=== PATIENT | female | born 1990 | race Caucasian/White ===

== ENCOUNTER 2016-04-20 18:41 | Inpatient (IN) | payer OTHER ==
[~2016-04-20] VITALS: Ht 162.6 cm; Wt 89.7 kg
[2016-04-20 19:58] VITALS: Ht 162.6 cm; Wt 89.7 kg
[2016-04-20 19:59] VITALS: BP 114/78; PULSE 100; RESP 18
[2016-04-20] MEDS ORDERED: METHYLERGONOVINE 0.2 MG INJ IM PRN (20:00)
[2016-04-20] MEDS ORDERED: OXYTOCIN 30 UNITS/LR 500 ML IV PRN (20:00)
[2016-04-20] MEDS ORDERED: LACTATED RINGER'S 1,000 ML IV PRN (20:00)
[2016-04-20] MEDS ORDERED: LIDOCAINE 1% (MPF) 30 ML INJ INJ PRN (20:00)
[2016-04-20] MEDS ORDERED: OXYTOCIN 30 UNITS/LR 500 ML IV SCH ×2 (20:00)
[2016-04-20] MEDS ORDERED: AMPICILLIN 2 GM/NS (PMX) 100 ML IV ONE (20:00)
[2016-04-20] MEDS ORDERED: CARBOPROST 250 MCG INJ IM PRN (20:00)
[2016-04-20] MEDS: LACTATED RINGER'S 1,000 ML IV SCH ×2 (20:00→21:56)
[2016-04-20] MEDS ORDERED: MISOPROSTOL 200 MCG TAB PR PRN (20:00)
[2016-04-20] MEDS ORDERED: BUTORPHANOL 2 MG INJ IV PRN (20:00)
[2016-04-20] MEDS ORDERED: FERR325C PO (20:03)
[2016-04-20] MEDS ORDERED: PRENAT PO (20:03)
[2016-04-20] MEDS ORDERED: CALC-516 PO (20:04)
[2016-04-20] MEDS ORDERED: FOL8 PO (20:04)
[2016-04-20 20:43] LABS: BASOPHILS % 0.3 % (0.0-2.0); EOSINOPHILS % 0.3 % (0.0-7.0); HEMATOCRIT 38.3 % (37.0-47.0); HEMOGLOBIN 12.9 g/dl (12.0-16.0); LYMPHOCYTES # 1.8 10^3/ul (0.8-2.9); LYMPHOCYTES % 14.4 % (15.0-51.0); MEAN CORPUSCULAR HEMOGLOBIN 30.1 pg (29.0-33.0); MEAN CORPUSCULAR HGB CONC 33.8 g/dl (32.0-37.0); MEAN CORPUSCULAR VOLUME 89.2 fl (82.0-101.0); MEAN PLATELET VOLUME 9.9 fl (7.4-10.4); MONOCYTE # 0.5 10^3/ul (0.3-0.9); MONOCYTES % 4.3 % (0.0-11.0); NEUTROPHIL # 9.8 10^3/ul (1.6-7.5); NEUTROPHILS % 80.7 % (39.0-77.0); PLATELET COUNT 192 10^3/UL (140-440); RED BLOOD COUNT 4.29 10^6/ul (4.20-5.40); RED CELL DISTRIBUTION WIDTH 12.8 % (11.5-14.5); UNCORRECTED WBC 12.2 10^3/ul (4.8-10.8); WHITE BLOOD COUNT 12.2 10^3/ul (4.8-10.8)
[2016-04-20 20:47] LABS: CONDITION 1
[2016-04-20 20:53] LABS: INR 0.89; PT RATIO 0.9
[2016-04-20 20:54] LABS: PARTIAL THROMBOPLASTIN TIME 26.9 Sec (25.0-35.0)
[2016-04-20 21:04] LABS: BARBITURATES Negative (NEGATIVE); BENZODIAZEPINES Negative (NEGATIVE)
[2016-04-20 21:05] LABS: CANNABINOIDS Negative (NEGATIVE)
[2016-04-20 21:07] LABS: COCAINE Negative (NEGATIVE)
--- NOTE | 2016-04-20 21:21 | RADRPT ---
PROCEDURE: US OB. CLINICAL INDICATION: . Liver. TECHNIQUE: Multiple transabdominal sonographic images of the pelvis were obtained. COMPARISON: None. FINDINGS: There is a single live intrauterine in cephalic presentation with heart motion of 13 7 beats per minute. The placenta is posteriorly located. Amniotic fluid amount appears decreased. Measurements were made in order to determine age. The results are as follows: BPD = 9.59 cm, 39 weeks 1 day HC = 33.34 cm, 38 weeks 1 day AC = 34.80 cm, 38 weeks 5 days FL = 7.42 cm, 38 weeks 0 days SANDEE: 04/30/2016 by ultrasound. SANDEE: 04/26/2016 by LMP. EFW: 3521 g, 7 pounds 12 ounces, 55.3%. IMPRESSION: Single live intrauterine measuring 38 weeks 4 days using current ultrasound measurements w ith an estimated date of delivery of 04/30/2016. RPTAT: HLST .Carmel Medellin MD, MD Date Time Electronically viewed and signed by .Carmel Medellin MD, on 04/20/2016 21:20 .T/
[2016-04-20 21:25] LABS: OPIATES NEGATIVE (NEGATIVE)
--- NOTE | 2016-04-20 23:42 | HP ---
Date/Time of Note Date/Time of Note DATE: 04/20/16 TIME: 23:39 OB - History Hx of Present Chief Complaint: leakage of fluid Estimated Due Date: Apr 26, 2016 : 1 Para: 0 Spontaneous : 0 Therapeutic : 0 Care: Other ( records not available) Obstetrical Complications: None Medical Complications: None Past Family/Social History * Past Medical, Surgical, Family and Obstetric Histories reviewed from chart. GBS Status: Unknown OB Admission Exam Vital Signs Vital Signs Vital Signs Date Time Temp Pulse Resp B/P Pulse Ox O2 Delivery O2 Flow Rate FiO2 04/20/16 19:59 98.3 100 18 114/78 Room Air Physical Exam HEENT: WNL Heart: Rhythm Normal Lungs: Clear Abdomen: WNL Extremities: Normal Cervical Dilatation: 1cm Effacement: 50% Station: -1 Membranes: Ruptured Amniotic Fluid: Thin Meconium Heart Rate: 130's Accelerations: Accelerations Present Decelerations: No Decelerations Varibility: Moderate Last 72 hours Lab Results CBC & BMP 04/20/16 20:25 OB Assessment/Plan Reason for admission: rupture of membranes Plan: Expectant Management JOSE ALEXIS MD Apr 20, 2016 23:42
[2016-04-21] MEDS ORDERED: OXYTOCIN 30 UNITS/LR 500 ML IV SCH (04:00)
[2016-04-21] MEDS: LACTATED RINGER'S 1,000 ML IV SCH ×2 (04:16→10:56)
[2016-04-21] MEDS ORDERED: AMPICILLIN 2 GM/NS (PMX) 100 ML ONE (06:30)
[2016-04-21] MEDS ORDERED: AMPICILLIN 2 GM/NS (PMX) 100 ML IV ONE (06:30)
[2016-04-21] MEDS ORDERED: FENTAnyl 2MCG/ML-ROPIV 0.2% 100 ML ONE (10:00)
[2016-04-21] MEDS ORDERED: AMPICILLIN 1 GM/NS (PMX) 50 ML IV SCH ×2 (10:30)
[2016-04-21] MEDS ORDERED: FENTAnyl 2MCG/ML-ROPIV 0.2% 100 ML BAG EPI SCH (11:30)
[2016-04-21] MEDS ORDERED: NALOXONE (0.4 MG/ML) INJ IV PRN ×2 (11:30→14:00)
[2016-04-21] MEDS ORDERED: CEFAZOLIN 2 GM/50 ML (PMX) 50 ML IV SCH (13:00)
[2016-04-21] MEDS ORDERED: CEFAZOLIN 2 GM/50 ML (PMX) 50 ML IVPB ONE (13:03)
[2016-04-21] MEDS ORDERED: KETOROLAC 30 MG INJ ONE (13:35)
[2016-04-21] MEDS ORDERED: METOCLOPRAMIDE 10 MG INJ ONE (13:35)
[2016-04-21] MEDS ORDERED: OXYTOCIN 10 UNIT INJ ONE ×2 (13:35→13:36)
[2016-04-21] MEDS ORDERED: DEXAMETHASONE 4 MG/ML 1 ML INJ ONE (13:35)
[2016-04-21] MEDS ORDERED: ONDANSETRON 4 MG INJ ONE (13:35)
[2016-04-21] MEDS ORDERED: morphine SULFATE/PF (10 MG/10 ML) INJ ONE (13:49)
[2016-04-21] MEDS ORDERED: PHENYLephrine (100 MCG/ML) 5ML SYG ONE (13:51)
[2016-04-21] MEDS ORDERED: DIPHENHYDRAMINE 50 MG INJ IV PRN ×2 (14:00)
[2016-04-21] MEDS ORDERED: morphine 4 MG/ML VIAL IV PRN (14:00)
[2016-04-21] MEDS ORDERED: HYDROmorphONE 1 MG/ML SYG IV PRN ×2 (14:00)
[2016-04-21] MEDS ORDERED: morphine 2 MG INJ IV PRN (14:00)
[2016-04-21] MEDS ORDERED: EPHEDrine SULFATE 50 MG/5 ML SYG IV PRN (14:00)
[2016-04-21] MEDS ORDERED: ZOLPIDEM 5 MG TAB PO PRN (14:00)
[2016-04-21] MEDS ORDERED: FENTAnyl 50 MCG/ML VIAL IV PRN ×3 (14:00)
[2016-04-21] MEDS ORDERED: ONDANSETRON 4 MG INJ IV PRN ×2 (14:00)
[2016-04-21] MEDS ORDERED: METOCLOPRAMIDE 10 MG INJ IV PRN (14:00)
[2016-04-21] MEDS ORDERED: HYDROmorphONE (0.2 MG/ML) 10ML SYG IV PRN ×3 (14:00)
[2016-04-21] MEDS ORDERED: HYDROCODONE/APAP (5/325) TAB PO PRN (14:00)
[2016-04-21] MEDS ORDERED: NALBUPHINE HCL (10 MG/1 ML) INJ IV PRN (14:00)
[2016-04-21] MEDS ORDERED: morphine (1 MG/ML) 10ML SYRINGE IV PRN ×3 (14:00)
[2016-04-21] MEDS ORDERED: MEPERIDINE 25 MG INJ IV PRN (14:00)
[2016-04-21] MEDS ORDERED: KETOROLAC 30 MG INJ IV PRN (14:00)
[2016-04-21] MEDS ORDERED: OXYTOCIN 30 UNITS/LR 500 ML IV PRN (17:30)
[2016-04-21] MEDS ORDERED: LANOLIN 7 GM TUBE TOP PRN (17:30)
[2016-04-21] MEDS ORDERED: METHYLERGONOVINE 0.2 MG INJ IM PRN (17:30)
[2016-04-21] MEDS ORDERED: MISOPROSTOL 200 MCG TAB PR PRN (17:30)
[2016-04-21] MEDS ORDERED: OXYCODONE/ACETAMINOPHEN (5/325) TAB PO PRN ×2 (17:30)
[2016-04-21] MEDS ORDERED: ACETAMINOPHEN/CODEINE #3 TAB PO PRN ×2 (17:30)
[2016-04-21] MEDS ORDERED: CEFAZOLIN 1 GM/50 ML (PMX) 50 ML IVPB SCH (17:30)
[2016-04-21] MEDS ORDERED: CARBOPROST 250 MCG INJ IM PRN (17:30)
--- NOTE | 2016-04-21 17:31 | DELSUM ---
Delivery Summary A-C Datetime Report Generated by CPN: 04/21/2016 17:30 DELIVERY PERSONNEL Training Development Manager: Servin, [place] MATERNAL INFORMATION Delivery Anesthesia: Epidural Medications in Delivery: see anesthesia records Estimated Blood Loss (ml): 500 Placenta Cultured: Yes Maternal Complications: Other Other Maternal Complications: SROM light meconium 2/7 @ 1800 LABOR SUMMARY EDC: 04/26/2016 00:00 No. Babies in Womb: 1 Attempted: No Labor Anesthesia: Epidural LABOR INFORMATION Reason for Induction: Not Applicable Onset of Labor: 04/20/2016 18:00 Oxytocin: Augmentation Group B Beta Strep: Negative Antibiotics # of Doses: 3 Antibiotics Time of Last Dose: 1315 Steroids Given: None Reason Steroids Not Administered: Not Applicable MEMBRANES Membranes Rupture Method: Spontaneous Membranes Rupture Method: Spontaneous Rupture of Membranes: 04/20/2016 18:00 Length of Rupture (hr): 19.62 Amniotic Fluid Color: Light Meconium Amniotic Fluid Color: Light Meconium Amniotic Fluid Amount: Small Amniotic Fluid Amount: Moderate Amniotic Fluid Odor: None Amniotic Fluid Odor: None STAGES OF LABOR Stage 3 hr: 0 Stage 3 min: 1 Total Time in Labor hr: 19 Total Time in Labor min: 38 CSECTION DELIVERY Primary Indication: Nonreassuring Stat CSection Urgency: Emergency CSection Incidence: Primary Labor: Labor Elective: Nonelective CSection Incision: Lower Uterine Transverse BABY A INFORMATION Delivery Date/Time: 04/21/2016 13:37 Method of Delivery: Born in Route : No : N/A Forceps: N/A Vacuum Extraction: N/A Shoulder Dystocia : N/A SHOULDER DYSTOCIA BABY A Delivery Date/Time: 04/21/2016 13:37 PRESENTATION/POSITION BABY A Presentation: Cephalic Cephalic Presentation: Vertex Vertex Position: Left Occipital Transverse Breech Presentation: N/A PLACENTA INFORMATION BABY A Placenta Delivery Time : 04/21/2016 13:38 Placenta Method of Delivery: Manual Removal Placenta Status: Delivered SCORES BABY A Heart Rate 1 min: >100 bpm Resp Effort 1 min: Slow, Irregular Reflex Irritability 1 min: Cough/Sneeze/Pulls Away Muscle Tone 1 min: Active Motion Color 1 min: Blue/Pale Resuscitation Effort 1 min: Tactile Stimulation; Oxygen SCORE 1 MIN: 7 Heart Rate 5 min: >100 bpm Resp Effort 5 min: Slow, Irregular Reflex Irritability 5 min: Cough/Sneeze/Pulls Away Muscle Tone 5 min: Active Motion Color 5 min: Body [place], Extremit Blue SCORE 5 MIN: 8 Heart Rate 10 min: >100 bpm Resp Effort 10 min: Good Cry Reflex Irritability 10 min: Cough/Sneeze/Pulls Away Muscle Tone 10 min: Active Motion Color 10 min: Body [place], Extremit Blue SCORE 10 MIN: 9 INFANT INFORMATION BABY A Gestational Age at Delivery: 39.2 Gestational Status: Full Term- 39- 40.6 Weeks Infant Outcome : Liveborn Infant Condition : Stable Sex: Male IDENTIFICATION/MEDS BABY A ID Band Number: [id number] ID Band Location: Right Leg; Left Arm Sensor Applied: Yes Sensor Number: [id number] Sensor Location : Cord Clamp Vitamin K Given : Not Given Erythromycin Given: Not Given WEIGHT/LENGTH BABY A Birthweight (gm): 3255 Infant Weight (lb): 7 Weight (oz): 3 Infant Length (in): 20.00 Infant Length (cm): 50.80 CORD INFORMATION BABY A No. Cord Vessels: 3 Nuchal Cord : N/A Cord Blood Taken: Yes Infant Suction: Mouth; Nose ASSESSMENT BABY A Infant Complications: Multiple Variable Decels; Meconium Complications- Other: SROM light meconium 2/7 @ 1800 Physical Findings- Other: void x1 Respirations: Appears Normal Desktop Architect/ALS Called : No Infant Care By: rt/leann rn Transferred To: Remains with Mother
[2016-04-21 17:40] VITALS: BP 121/70; PULSE 65; RESP 18
[2016-04-21 18:00] VITALS: BP 120/74; PULSE 65; RESP 18
[2016-04-21] MEDS: IBUPROFEN 600 MG TAB PO SCH (18:00)
[2016-04-21] MEDS: OXYTOCIN 30 UNITS/LR 500 ML IV SCH (18:03)
[2016-04-21 19:30] VITALS: BP 120/68; PULSE 84; RESP 19
[2016-04-21] MEDS: SENNA/DOCUSATE NA (8.6MG/50MG) TAB PO SCH (21:08)
[2016-04-22] VITALS: BP 117/69; PULSE 75; RESP 20
[2016-04-22] MEDS: OXYTOCIN 30 UNITS/LR 500 ML IV SCH ×3 (01:06→05:06)
[2016-04-22] MEDS: LACTATED RINGER'S 1,000 ML IV SCH ×2 (01:06→06:40)
[2016-04-22 05:08] VITALS: BP 110/61; PULSE 79; RESP 18
[2016-04-22] MEDS: IBUPROFEN 600 MG TAB PO SCH ×5 (06:00→23:31)
[2016-04-22 08:00] VITALS: BP 107/52; PULSE 89; RESP 18
[2016-04-22 08:01] LABS: BASOPHILS % 0.2 % (0.0-2.0); EOSINOPHILS % 0.2 % (0.0-7.0); HEMATOCRIT 30.8 % (37.0-47.0); HEMOGLOBIN 10.6 g/dl (12.0-16.0); LYMPHOCYTES % 11.8 % (15.0-51.0); MEAN CORPUSCULAR HEMOGLOBIN 30.8 pg (29.0-33.0); MEAN CORPUSCULAR HGB CONC 34.3 g/dl (32.0-37.0); MEAN PLATELET VOLUME 9.3 fl (7.4-10.4); MONOCYTE # 0.8 10^3/ul (0.3-0.9); MONOCYTES % 4.8 % (0.0-11.0); NEUTROPHIL # 13.7 10^3/ul (1.6-7.5); PLATELET COUNT 175 10^3/UL (140-440); RED BLOOD COUNT 3.42 10^6/ul (4.20-5.40); RED CELL DISTRIBUTION WIDTH 13.2 % (11.5-14.5); UNCORRECTED WBC 16.5 10^3/ul (4.8-10.8); WHITE BLOOD COUNT 16.5 10^3/ul (4.8-10.8)
[2016-04-22 08:09] LABS: CONDITION 1
--- NOTE | 2016-04-22 08:49 | HP ---
DATE OF ADMISSION: 04/20/2016 HISTORY OF PRESENT ILLNESS: This is a 25-year-old female, 1, para 0, with an EDC o f 04/26/2016, admitted to [facility] with the chief complaint of premature rupture of membranes and very early labor. Upon admission to the hospital, pelvic examination was carried out. Cervical dilatation at 1 cm, 30 to 40% effacement, vertex is -2 station. The patient was plac ed on low dose augmentation and antibiotics. During the course of labor she developed several occas ions, 3 to 4 episodes, of variable decelerations, down to the 60s. Due to the category 2 and 3 khadar iable decelerations and not anticipating a timely delivery, this was discussed with the patient. Au gmentation was discontinued and the patient decided not to try the augmentation at a later time afte r some resting period and requested a delivery. Therefore, she is being prepared to under go the above-mentioned surgery. This patient has been under the care of the [employer] kim lama her course was not complicated with gestational diabetes, -induced hypertension , or any other serious surgical or medical conditions. GYNECOLOGIC HISTORY: Menarche at age 12, regular periods, 28 days, lasting 5 to 6 days. No history of any previous pregnancies. SURGICAL HISTORY: Negative. PAST MEDICAL HISTORY: No hospitalizations for any serious medical conditions. ALLERGIES: DENIES ALLERGIES TO ANY KNOWN MEDICATION. SOCIAL HISTORY: Denies smoking or drinking. REVIEW OF SYSTEMS: Within normal. PHYSICAL EXAMINATION: VITAL SIGNS: Height 5 feet 4, 174 pounds, with a temperature of 97.5, pulse of 63, respirations 18, and blood pressure 102/55. HEAD, EARS, NOSE AND THROAT: Negative. NECK: Supple. No thyromegaly. LUNGS: Clear to P and A. HEART: Normal sinus rhythm. No murmur. BREASTS: Status compatible with state of the . No abnormal palpable mass. No nipple retr action or discharge. No axillary adenopathy, no supraclavicular adenopathy. ABDOMEN: Measures approximately 37 cm from the symphysis pubis to the height of the fundus, with th e heart rate at times category 3. FINAL PELVIC EXAMINATION: Cervical dilatation at 2 cm, 90% effacement, vertex at -3 station. IMPRESSION: Intrauterine at term, premature rupture of membrane, nonreassuring heart tracings, category 3. A trial of labor was discussed with the patient, with discontinuation of aug mentation and retrying several hours labor, requesting delivery. The patient is aware of the complications of the surgery, including bowel or bladder injury, infection, hemorrhage, and yuly yina, and she is willing to go ahead with this procedure. PREOPERATIVE DIAGNOSIS: Intrauterine at term, premature rupture of membranes, non-reassuri ng heart tracing (category 2 and 3). Declined further trial of labor, requesting de jamesy. POSTOPERATIVE DIAGNOSIS: Intrauterine at term, premature rupture of membranes, non-reassur ing heart tracing (category 2 and 3). Declined further trial of labor, requesting d [place]. PROCEDURE: Primary transverse low cervical section. SURGEON: Ryder Pabon MD STEEL LOADER: Gina Mccann MD ANESTHESIA: Spinal. ANESTHESIOLOGIST: Bryant Zarate MD FINDINGS: Live baby boy, with Apgars of 7, 8 and 9, weight 3255 grams. DETAILS OF PROCEDURE: Under satisfactory spinal anesthesia, the patient was prepped and draped and placed in the supine position, tilted to the left. Pfannenstiel incision was made, incision was car ried through the subcutaneous tissue. Bleeders were brought under control with electrocautery. Fas nandini incised to the length of the incision. Rectus muscle divided in the midline. Peritoneum expose d, entered through a transverse incision. Exploration of abdomen revealed a gravid uterus at term, normal-appearing tubes and ovaries. Bladder flap was developed. Transverse incision was made in th e lower segment of the uterus. Amniotic sac ruptured. Clear amniotic fluid noted. Live baby boy w as delivered from an unengaged vertex. Nasal oropharyngeal suction was performed. Cord clamped aft er stop pulsation. Baby handed to the team for immediate attention. The patient received 20 units of Pitocin. Placenta delivered manually intact. Uterine cavity was cleaned with a wet spo nge and drainage established. Uterus was closed in 2 layers using Monocryl #1 in continuous fashion . Peritoneal cavity was irrigated with warm saline. Sponge, needle and instruments were reported t o be correct. Abdominal peritoneum was closed with 2-0 chromic catgut continuously. Rectus muscles were approximated with a few interrupted 2-0 chromic catgut. Fascia was closed with #1 PDS in a co ntinuous fashion. Subcutaneous tissue was approximated with 2-0 chromic catgut, skin was closed wit h nicole. Estimated blood loss was 600 to 700 mL. Urine bag contained 200 mL of clear urine. The patient tolerated the procedure well and was transferred to the recovery room in good condition. Dictated By: RYDER SPRINGER/NIRAJ Conf#: [id number] DID#: [id number]
[2016-04-22] MEDS: SENNA/DOCUSATE NA (8.6MG/50MG) TAB PO SCH ×2 (09:00→20:56)
[2016-04-22 12:00] VITALS: BP 94/64; PULSE 81; RESP 18
[2016-04-22 16:00] VITALS: BP 106/75; PULSE 90; RESP 18
--- NOTE | 2016-04-22 16:18 | PN ---
Date/Time of Note Date/Time of Note DATE: 04/22/16 TIME: 16:16 OB Subjective Subjective Subjective Post day 1 Afebrile, vital sign stable, abdomen soft incision dry bowel sound present lochia moderate, extremity normal ambulation recommended Laboratory Tests Test 04/22/16 06:50 Basophils # 0.010^3/ul Basophils % 0.2% Eosinophils # 0.010^3/ul Eosinophils % 0.2% Hematocrit 30.8% Hemoglobin 10.6g/dl Lymphocytes # 2.010^3/ul Lymphocytes % 11.8% Mean Corpuscular Hemoglobin 30.8pg Mean Corpuscular Hemoglobin Concent 34.3g/dl Mean Corpuscular Volume 90.0fl Mean Platelet Volume 9.3fl Monocytes # 0.810^3/ul Monocytes % 4.8% Neutrophils # 13.710^3/ul Neutrophils % 83.0% Nucleated Red Blood Cells # 0.010^3/ul Nucleated Red Blood Cells % 0.0/100WBC Platelet Count 22224^3/UL Red Blood Count 3.4210^6/ul Red Cell Distribution Width 13.2% White Blood Count 16.510^3/ul Current Medications Medications (Trade) Dose Ordered Sig/Stacie Route PRN Reason Start Time Stop Time Status Last Admin Dose Admin Lactated Ringer's 1,000 ml @ 125 mls/hr Q8H IV 04/20/16 20:00 04/21/16 17:09 DC 04/21/16 10:56 Ampicillin 100 ml @ 100 mls/hr ONCE ONCE IV 04/20/16 20:00 04/20/16 21:07 DC Ampicillin (Ampicillin 1 Gm/ NS (Pmx)) 50 ml @ 100 mls/hr Q4H IV 04/21/16 00:00 04/21/16 00:00 DC Butorphanol Tartrate (Stadol) 2 mg Q2H PRN IV PAIN 04/20/16 20:00 04/21/16 17:09 DC 04/21/16 06:10 Lidocaine 30 ml 30 ml ONCE PRN INJ EPISIOTOMY/TEARING 04/20/16 20:00 04/21/16 17:09 DC Oxytocin/Lactated Ringer's 500 ml @ 125 mls/hr ONCE -MAY REPEAT X1 IV 04/20/16 20:00 04/21/16 17:09 DC Oxytocin/Lactated Ringer's 500 ml @ 125 mls/hr ONCE IV 04/20/16 20:00 04/21/16 17:09 DC 04/21/16 15:10 Lactated Ringer's 1,000 ml @ 2,000 mls/hr Q30M PRN IV PRE-EPIDURAL BOLUS 04/20/16 20:00 04/21/16 17:09 DC 04/21/16 10:03 Oxytocin/Lactated Ringer's 500 ml @ 0 mls/hr ONCE PRN IV For Hemorrhage Management 04/20/16 20:00 04/21/16 17:09 DC Methylergonovine Maleate (Methergine) 0.2 mg ONCE PRN IM VAGINAL BLEEDING 04/20/16 20:00 04/21/16 17:09 DC Carboprost Tromethamine (Hemabate) 250 mcg ONCE PRN IM VAGINAL BLEEDING 04/20/16 20:00 04/21/16 17:10 DC Misoprostol 1000 mcg 1,000 mcg ONCE PRN [place] VAGINAL BLEEDING 04/20/16 20:00 04/21/16 17:10 DC Oxytocin/Lactated Ringer's 500 ml @ 0 mls/hr Q0M IV 04/21/16 04:00 04/21/16 17:09 DC 04/21/16 04:12 Ampicillin 100 ml @ 100 mls/hr ONCE ONCE IV 04/21/16 06:30 04/21/16 07:29 DC 04/21/16 06:47 Ampicillin 50 ml @ 100 mls/hr Q4H IV 04/21/16 10:30 04/21/16 17:09 DC 04/21/16 10:03 Ampicillin 100 ml @ ud STK-MED ONCE .ROUTE 04/21/16 06:30 04/21/16 06:31 DC Fentanyl/ Ropivacaine 100 ml @ ud STK-MED ONCE .ROUTE 04/21/16 10:00 04/21/16 10:01 DC Naloxone HCl (Narcan) 0.2 mg Q2M PRN IV FOR RESP RATE 8 OR LESS 04/21/16 11:30 Fentanyl/ Ropivacaine 100 ml 100 ml EPIDURAL (PCEA) EPI 04/21/16 11:30 04/21/16 17:09 DC Cefazolin Sodium/ Dextrose 50 ml @ 100 mls/hr ONCE IV 04/21/16 13:00 04/21/16 17:09 DC Cefazolin Sodium/ Dextrose (Ancef 2 Gm/50 ml (Pmx)) 50 ml @ ud STK-MED ONCE IVPB 04/21/16 13:03 04/21/16 13:04 DC Ondansetron HCl (Zofran Inj) 4 mg STK-MED ONCE .ROUTE 04/21/16 13:35 04/21/16 13:36 DC Metoclopramide HCl (Reglan) 10 mg STK-MED ONCE .ROUTE 04/21/16 13:35 04/21/16 13:36 DC Oxytocin (Oxytocin) 10 units STK-MED ONCE .ROUTE 04/21/16 13:35 04/21/16 13:36 DC Ketorolac Tromethamine (Toradol) 30 mg STK-MED ONCE .ROUTE 04/21/16 13:35 04/21/16 13:36 DC Dexamethasone (Decadron) 4 mg STK-MED ONCE .ROUTE 04/21/16 13:35 04/21/16 13:36 DC Oxytocin (Oxytocin) 10 units STK-MED ONCE .ROUTE 04/21/16 13:36 04/21/16 13:37 DC Morphine Sulfate (Duramorph) 10 mg STK-MED ONCE .ROUTE 04/21/16 13:49 04/21/16 13:50 DC Phenylephrine HCl (Fredis-Synephrine Inj Syg) 500 mcg STK-MED ONCE .ROUTE 04/21/16 13:51 04/21/16 13:52 DC Morphine Sulfate (morphine (REC)) 2 mg PACU ORDER PRN IV MILD PAIN LEVEL 1-3 04/21/16 14:00 04/21/16 17:10 DC Morphine Sulfate (morphine (REC)) 4 mg PACU ORDER PRN IV MODERATE PAIN LEVEL 4-6 04/21/16 14:00 04/21/16 17:10 DC Morphine Sulfate (morphine (REC)) 6 mg PACU ORDER PRN IV SEVERE PAIN LEVEL 7-10 04/21/16 14:00 04/21/16 17:10 DC Hydromorphone HCl (Dilaudid (Rec)) 0.2 mg PACU ORDER PRN IV MILD PAIN LEVEL 1-3 04/21/16 14:00 04/21/16 17:09 DC Hydromorphone HCl (Dilaudid (Rec)) 0.4 mg PACU ORDER PRN IV MODERATE PAIN LEVEL 4-6 04/21/16 14:00 04/21/16 17:09 DC Hydromorphone HCl (Dilaudid (Rec)) 0.6 mg PACU ORDER PRN IV SEVERE PAIN LEVEL 7-10 04/21/16 14:00 04/21/16 17:09 DC Fentanyl (Sublimaze) 25 mcg PACU ORDER PRN IV MILD PAIN LEVEL 1-3 04/21/16 14:00 04/21/16 17:09 DC Fentanyl (Sublimaze) 50 mcg PACU ODER PRN IV MODERATE PAIN LEVEL 4-6 04/21/16 14:00 04/21/16 17:09 DC Fentanyl (Sublimaze) 75 mcg PACU ORDER PRN IV SEVERE PAIN LEVEL 7-10 04/21/16 14:00 04/21/16 17:09 DC Ondansetron HCl (Zofran Inj) 4 mg PACU ORDER PRN IV NAUSEA AND/OR VOMITING 04/21/16 14:00 04/21/16 17:10 DC Metoclopramide HCl (Reglan) 10 mg PACU ORDER PRN IV NAUSEA AND/OR VOMITING 04/21/16 14:00 04/21/16 17:10 DC Ephedrine Sulfate 5 mg PACU ORDER PRN IV MAP LESS THAN 60 04/21/16 14:00 04/21/16 17:09 DC Meperidine HCl (Demerol) 25 mg PACU ORDER PRN IV POST-OP RIGORS 04/21/16 14:00 04/21/16 17:09 DC Diphenhydramine HCl (Benadryl) 25 mg PACU ORDER PRN IV PRURITUS 04/21/16 14:00 04/21/16 17:09 DC Hydromorphone HCl (Dilaudid) 0.2 mg Q2H PRN IV PAIN LEVEL 1-5 04/21/16 14:00 Hydromorphone HCl (Dilaudid) 0.4 mg Q2H PRN IV PAIN LEVEL 6-10 04/21/16 14:00 Morphine Sulfate (morphine) 2 mg Q2H PRN IV PAIN LEVEL 1-5 04/21/16 14:00 Morphine Sulfate (morphine) 4 mg Q2H PRN IV PAIN LEVEL 6-10 04/21/16 14:00 Ketorolac Tromethamine (Toradol) 30 mg Q6H PRN IV PAIN LEVEL 6-10 04/21/16 14:00 04/24/16 13:59 Acetaminophen/ Hydrocodone Bitart ([place] (5/325)) 1 tab Q4H PRN PO PAIN LEVEL 4-6 04/21/16 14:00 Diphenhydramine HCl (Benadryl) 25 mg Q4H PRN IV PRURITUS 04/21/16 14:00 Nalbuphine HCl (Nubain) 10 mg Q4H PRN IV PRURITUS 04/21/16 14:00 Ondansetron HCl (Zofran Inj) 4 mg Q6H PRN IV NAUSEA AND/OR VOMITING 04/21/16 14:00 Zolpidem Tartrate (Ambien) 5 mg HS MAY REPEAT X 1 PRN PO INSOMNIA 04/21/16 14:00 Naloxone HCl (Narcan) 0.2 mg Q2M PRN IV FOR RESP RATE 8 OR LESS 04/21/16 14:00 Miscellaneous Information DURAMORPH: 5 MG EPIDU... GIVEN NEURAXIAL XX 04/21/16 14:00 04/21/16 17:10 DC Lactated Ringer's (Lr) 1,000 ml @ 125 mls/hr Q8H IV 04/21/16 17:06 04/22/16 15:08 DC 04/22/16 06:40 Acetaminophen/ Codeine Phosphate (Tylenol No.3) 1 tab Q4H PRN PO PAIN LEVEL 4-6 04/21/16 17:30 Acetaminophen/ Codeine Phosphate (Tylenol No.3) 2 tab Q4H PRN PO PAIN LEVEL 7-10 04/21/16 17:30 Oxycodone/ Acetaminophen (Percocet (5/ 325)) 1 tab Q4H PRN PO PAIN LEVEL 4-6 04/21/16 17:30 Oxycodone/ Acetaminophen (Percocet (5/ 325)) 2 tab Q4H PRN PO PAIN LEVEL 7-10 04/21/16 17:30 Ibuprofen (Motrin) 600 mg Q6 PO 04/21/16 18:00 Simethicone (Mylicon) 160 mg Q8H PRN PO DISTENSION/GAS/BLOATING 04/21/16 17:30 Senna/Docusate Sodium (Senokot-S) 1 tab BID PO 04/21/16 21:00 04/21/16 21:08 Lanolin (Yok-G-Taoxzw) 1 applic BEDSIDE MEDICATION PRN TOP BEDSIDE FOR RAVINDER TO NIPPLES 04/21/16 17:30 04/21/16 18:05 Diphtheria/ Tetanus/Acell Pertussis 0.5 ml 0.5 ml ONCE ONCE IM* 04/24/16 09:00 04/24/16 09:01 Oxytocin/Lactated Ringer's 500 ml @ 0 mls/hr ONCE PRN IV For Hemorrhage Management 04/21/16 17:30 04/21/16 22:50 Methylergonovine Maleate (Methergine) 0.2 mg ONCE PRN IM VAGINAL BLEEDING 04/21/16 17:30 Carboprost Tromethamine (Hemabate) 250 mcg ONCE PRN IM VAGINAL BLEEDING 04/21/16 17:30 Misoprostol 1000 mcg 1,000 mcg ONCE PRN [place] VAGINAL BLEEDING 04/21/16 17:30 Cefazolin Sodium 50 ml @ 100 mls/hr ONCE IVPB 04/21/16 17:30 04/21/16 17:59 DC 04/21/16 21:07 Oxytocin/Lactated Ringer's 500 ml @ 125 mls/hr Q4H IV 04/21/16 17:06 04/22/16 02:39 Influenza Virus Vaccine (Fluzone) 0.5 ml ONCE ONCE IM* 04/23/16 09:00 04/23/16 09:01 RYDER HA MD Apr 22, 2016 16:18
[2016-04-22 20:00] VITALS: BP 109/67; PULSE 91; RESP 18
[2016-04-23 04:00] VITALS: BP 104/60; PULSE 80; RESP 18
[2016-04-23] MEDS: IBUPROFEN 600 MG TAB PO SCH ×4 (05:48→23:44)
[2016-04-23 08:00] VITALS: BP 121/77; PULSE 111; RESP 19
[2016-04-23] MEDS ORDERED: INFLUENZA VIRUS VACCINE 0.5 ML (DISPENSING) IM* ONE (09:00)
[2016-04-23] MEDS: SENNA/DOCUSATE NA (8.6MG/50MG) TAB PO SCH ×2 (09:20→21:17)
[2016-04-23] MEDS ORDERED: NA PHOSPHATE/BIPHOS 133 ML ENEMA PR ONE (14:30)
--- NOTE | 2016-04-23 14:41 | PN ---
Date/Time of Note Date/Time of Note DATE: 04/23/16 TIME: 14:40 OB Subjective Subjective Subjective Postop day 2 Vital sign stable afebrile abdomen soft lochia normal incision dry bowel sounds present no bowel movement enema recommended as well as ambulation. RYDER HA MD Apr 23, 2016 14:41
--- NOTE | 2016-04-23 15:06 | OPR ---
DATE OF OPERATION: PREOPERATIVE DIAGNOSES: 1. Intrauterine at term. 2. Nonreassuring heart tracing with multiple variable deceleration not anticipating a timely delivery. POSTOPERATIVE DIAGNOSES: 1. Intrauterine at term. 2. Nonreassuring heart tracing with multiple variable deceleration not anticipating a timely delivery. PROCEDURE: Primary transverse low cervical section. SURGEON: Ryder Pabon MD EDUCATIONAL SIGN LANGUAGE INTERPRETER: Gina Bagley MD ANESTHESIA: Spinal. ANESTHESIOLOGIST: Bryant Zarate MD FINDINGS: Live baby boy with the 7, 8 and 9. Baby weighed 7 pounds 3 ounces. DETAILS OF THE PROCEDURE: Under satisfactory spinal anesthesia, the patient was prepped and draped and placed in supine position, tilted to the left. Pfannenstiel incision was made, carried through the subcutaneous tissue. Bleeders brought under control with electrocautery. Fascia incised to the length of the incision. Rectus muscles from the fascia, divided in midline. Peritoneum entered through a transverse incision. Exploration of abdomen: Gravid uterus, normal appearing tub es and ovaries. Bladder flap was developed. Transverse incision was made in the lower segment of t he uterus. Amniotic sac ruptured. Clear amniotic fluid noted. Live baby boy was delivered from le ft occiput transverse. Nasal oropharyngeal suction was performed. Cord was clamped after stopped p ulsation and baby handed to the team for immediate attention. Patient received 20 units of Pitocin. Placenta delivered manually intact. Uterine cavity cleaned with wet sponge and drainage established. Uterus closed in 2 layers using Monocryl #1 in continuous fashion. Peritoneal cavity irrigated with warm saline. Sponge, needle and instrument reported to be correct. Abdominal perito neum closed with 2-0 chromic catgut continuously. Rectus muscle approximated with interrupted 2-0 c hromic catgut. Fascia closed with #1 PDS in a continuous fashion. Subcutaneous tissue approximated with 2-0 chromic catgut. The skin closed with nicole. Estimated blood loss 600 to 700 mL. Urine bag contained 200 mL of clear urine. Patient tolerated procedure well, transferred to [facility] in a good condition. Dictated By: RYDER PABON MD HF/NTS Conf#: [id number] DID#: [id number] CC: GINA BAGLEY MD;*EndCC*
[2016-04-23 16:00] VITALS: BP 118/74; PULSE 98; RESP 18
[2016-04-23 20:00] VITALS: BP 109/61; PULSE 86; RESP 18
[2016-04-24 04:00] VITALS: BP 112/64; PULSE 78; RESP 18
[2016-04-24] MEDS: IBUPROFEN 600 MG TAB PO SCH ×2 (05:39→12:13)
[2016-04-24 08:00] VITALS: BP 110/65; PULSE 70
[2016-04-24] MEDS: SENNA/DOCUSATE NA (8.6MG/50MG) TAB PO SCH (08:24)
[2016-04-24] MEDS ORDERED: DIPHTH/TET/ACEL PERTUSS (ADULT) 0.5 ML VIAL IM* ONE (09:00)
--- NOTE | 2016-04-24 10:42 | PD.PPDC ---
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
--- NOTE | 2016-04-24 10:48 | DS ---
Date/Time of Note Date/Time of Note DATE: 04/24/16 TIME: 10:44 Obstetrical Discharge Record Final Diagnosis Final Diagnosis: Term delivered Section Section: Primary Complications Other (category 3 heart tracing) Augmentation: No Rupture of Membranes: No Condition on Discharge Physical Assessment Last Vitals: vss abdomen soft ,incision dry bs present , had bm ,ext normal,discharged home , followup in 4 days to dc nicole Voiding: Yes Bowel Movement: Yes Breast: Filling Fundus: Firm Abdomen and Incision: dry ,healing well. Calf Tenderness: No Patient Condition: Good RYDER HA MD Apr 24, 2016 10:48
== END 2016-04-24 14:20 | disposition home or self-care (01) | DRG 766 ==
LOC: L-D 18:41 → OBT 18:41 → L-D 19:25 → PP1 04-21 18:06
PROVIDERS: ADMIT Obstetrics & Gynecology; ATTEND Obstetrics & Gynecology
PROC: 10D00Z1 Extraction of Products of Conception, Low, Open Approach (ICD-10-PCS; principal; 2016-04-21)
PROC: 3E00X4Z Introduction of Serum, Toxoid and Vaccine into Skin and Mucous Membranes, External Approach (ICD-10-PCS; 2016-04-24)
DX: O76 Abnormality in fetal heart rate and rhythm complicating labor and delivery (principal); Z23 Encounter for immunization; Z3A.39 39 weeks gestation of pregnancy; Z37.0 Single live birth
CPT/HCPCS: 62319; 76815; 80307; 85025; 85610; 85730; 86592; 86900; 86901; 87070; 87075; 87340; 88307; 90686; 90715; 94760; 99464; G0463; J0290; J0690; J1100; J1885; J2274; J2370; J2405; J2590; J2765; J3010; J7120